=== PATIENT | male | born 1975 | race Caucasian/White ===

== ENCOUNTER 2018-02-27 10:34 | Inpatient (IN) | payer BC, OTHER ==
[~2018-02-27] VITALS: Ht 172.7 cm; Wt 104.3 kg
--- NOTE | 2018-02-27 11:20 | NUR ---
PRE-ADMISSION Pt is a 42 yr old male, AA&Ox4. Pt is presenting himself to [facility] for ETOH use. Pt is noted with increase anxiety m/b difficulty staying still. Pt is noted with facial sweats and fine tremors on BUE. VS 155/103, P 103, T 98.0, O2 97%, pt denies any pain. Pt was seen and examined by Dr. Manning. Pt is to be admitted onto the 3rd unit. Will continue to f/u.
[2018-02-27] MEDS ORDERED: IBUPROFEN 400 MG TABLET PO PRN (11:30)
[2018-02-27] MEDS ORDERED: ONDANSETRON 4 MG/2 ML VIAL IM PRN (11:30)
[2018-02-27] MEDS ORDERED: LOPERAMIDE HCL 2 MG CAPSULE PO PRN ×2 (11:30)
[2018-02-27] MEDS ORDERED: ONDANSETRON ODT 4 MG TAB.RAPDIS SL PRN (11:30)
[2018-02-27] MEDS ORDERED: LORAZEPAM 1 MG TABLET PO PRN ×2 (11:30)
[2018-02-27] MEDS ORDERED: MAG HYDROX/AL HYDROX/SIMETH 30 ML LIQUID UDC PO PRN (11:30)
[2018-02-27] MEDS ORDERED: ACETAMINOPHEN 325 MG TABLET PO PRN (11:30)
[2018-02-27] MEDS ORDERED: MAGNESIUM HYDROXIDE 30 ML LIQUID UDC PO PRN (11:30)
[2018-02-27] MEDS ORDERED: CLONIDINE HCL 0.1 MG TABLET PO PRN (11:30)
[2018-02-27] MEDS ORDERED: LORAZEPAM 2 MG/1 ML VIAL IM PRN (11:30)
[2018-02-27] MEDS ORDERED: DICYCLOMINE HCL 20 MG TABLET PO PRN (11:30)
[2018-02-27] MEDS ORDERED: MIRALAX 17 GM POWD.PACK PO PRN (11:30)
[2018-02-27] MEDS ORDERED: THIAMINE HCL 200 MG/2 ML VIAL IM ONE (11:30)
--- NOTE | 2018-02-27 12:11 | NUR ---
ADMISSION NOTED Pt is a 42 yr old male, AA&Ox4. Pt arrived on the unit at 1206. Pt is presenting himself to [facility] for ETOH withdrawal. Pt is noted with increase anxiety m/b difficultly staying still. Pt is noted with facial sweats and is flushed. Fine tremors are noted on bilateral hands. Pt states of feeling "very anxious" due to coming in to detox. Body check was complete. Skin is intact, warm and moist to touch. Lung sounds are clear bilaterally. Pt states of having PMH of Anxiety, Depression and Insomnia and Sx hx of Nevus removal. Pt denies any Seizure. NO SI/HI. Pt denies any home medication. PCP is Dr. Lilia Mercado. Pt states of having allergies to Codeine. Pt is full Code and follows a Regular diet. SUBSTANCE USE: Pt states drinking became an issue at the age of 32year old. 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 Last use was today on 02/27/18 prior to admission, pt states of consuming 3 shots of vodka. Pt states drinking has negatively affected his life by impairing his relationship with his friends and family and stating it makes him "go into dark places" and states he can become a sexual deviant. Pt states, "I don't ever want to go there again". Pt states he wants to maintain a sober lifestyle and continue with inpatient rehabilitation center. Pt is to start on a 5 day Ativan taper as ordered. Pt was educated on disease process and medication regimen. Pt was able to verbalized understanding. Pt was oriented around unit and equipment in room. Pt is on fall precautions. Will continue to monitor.
[2018-02-27] MEDS: LORAZEPAM 1 MG TABLET PO SCH ×3 (12:50→20:51)
[2018-02-27 13:31] LABS: *AMPHETAMINE, URINE NEGATIVE (NEGATIVE); *BARBITURATE, URINE NEGATIVE (NEGATIVE); *CANNABINOID, URINE NEGATIVE (NEGATIVE); *COCCAINE, URINE NEGATIVE (NEGATIVE); *OPIATE, URINE NEGATIVE (NEGATIVE); *PHENCYCLIDINE SCREEN,URINE NEGATIVE (NEGATIVE)
[2018-02-27 14:09] VITALS: BP 134/84
[2018-02-27 16:00] VITALS: BP 138/86
[2018-02-27 16:05] LABS: BASOPHILS # (AUTO) 0.1 K/uL (0.0-8.0); EOSINOPHILS # (AUTO) 0.1 K/uL (0.0-0.7); EOSINOPHILS % (AUTO) 0.6 % (0.0-7.0); HEMATOCRIT 46.1 % (36.7-47.1); LYMPHOCYTES # (AUTO) 1.7 K/uL (20.0-40.0); LYMPHOCYTES % (AUTO) 19.7 % (20.5-51.5); MEAN CORPUSCULAR HEMOGLOBIN 34.1 uug (23.8-33.4); MEAN CORPUSCULAR HGB CONC 35 g/dL (32.5-36.3); MEAN CORPUSCULAR VOLUME 98.4 fL (73.0-96.2); MONOCYTES # (AUTO) 0.8 K/uL (2.0-10.0); MONOCYTES % (AUTO) 9.3 % (0.0-11.0); NEUTROPHILS % (AUTO) 69.4 % (38.5-71.5); PLATELET COUNT (AUTO) 260 K/uL (152-348); RED BLOOD CELL COUNT(AUTO) 4.69 MIL/uL (4.06-5.63); WHITE BLOOD COUNT (AUTO) 8.6 K/uL (3.6-10.2)
[2018-02-27 16:15] LABS: ALANINE AMINOTRANSFERASE 168 U/L (16-63); ALKALINE PHOSPHATASE 121 U/L (50-136); AMYLASE 34 U/L (25-115); ASPARTATE AMINOTRANSFERASE 85 U/L (15-37); BILIRUBIN,TOTAL 0.8 mg/dL (0.2-1.0); CARBON DIOXIDE 25 mmol/L (21-32); CHLORIDE 100 mmol/L (98-107); GLUCOSE 98 mg/dL (74-106); LIPASE 141 U/L (73-393); MAGNESIUM 1.6 mg/dL (1.8-2.4); UREA NITROGEN, BLOOD 14 mg/dL (7-18)
[2018-02-27 16:20] LABS: ETHANOL < 3 MG/DL (0-0)
[2018-02-27 16:36] LABS: THYROID STIMULATING HORMONE 1.577 mIU/mL (0.358-3.740)
[2018-02-27] MEDS ORDERED: MAGNESIUM OXIDE 400 MG TABLET PO ONE (18:00)
[2018-02-27] MEDS ORDERED: NALT50TA PO (18:56)
--- NOTE | 2018-02-27 19:05 | NUR ---
END OF SHIFT Pt is a 42 yr old male, AA&Ox4. Pt is a newly admit for ETOH withdrawal and started on a 5 day Ativan taper as ordered. Pt is noted with increase anxiety m/b difficulty staying still. Pt is noted with flat affect, facial redness and sweats. Fine tremors were seen on BUE. Pt was encouraged increase fluid intake for hydration. Last CIWA score was 15 at 1600. Safety precautions observed. Endorsed to shift mechanic nurse to continue to with care.
--- NOTE | 2018-02-27 19:39 | NUR ---
START OF SHIFT NOTE Rcvd report from outgoing nurse, pt. is in his room. Pt. is a 42 y/o male A/O to person, place, time, and purpose. Pt. was admitted for medically supervised withdrawal from ETOH. Pt. had his last drink 02/27/18 in the morning before being admitted. Pt. has been presenting w/ extreme anxiety, flat affect, sweats, fine tremors, chills, and flushed face. PRN Mag-Ox 800mg given for Mg++ level of 1.6. PRN Ativan 2mg given for anxiety, noted partially effective. Pt. denies S/I and H/I. Last CIWA 15 @ 1600. Call light is within reach. Pt. will continue to be monitored.
[2018-02-27 20:00] VITALS: BP 142/93
[2018-02-27] MEDS: QUETIAPINE FUMARATE 100 MG TABLET PO PRN (23:07)
[2018-02-27] MEDS: diphenhydrAMINE 50 MG CAPSULE PO PRN (23:07)
--- NOTE | 2018-02-27 23:07 | NUR ---
PRN ADMINISTRATION PRN Benadryl 50mg and Seroquel 100mg given for insomnia resulting from increased anxiety. Will reassess pt in 1 hr.
--- NOTE | 2018-02-28 | NUR ---
CIWA DEFERRED AND V/S REFUSED Pt is in bed w/ his eyes closed. Pt's breathing is unlabored and even.
--- NOTE | 2018-02-28 00:07 | NUR ---
PRN REASSESSMENT Pt reassessed after administration of Benadryl 50mg and Seroquel 100mg. Pt is in bed w/ his eyes closed. Pt's breathing is unlabored and even.
--- NOTE | 2018-02-28 04:00 | NUR ---
CIWA DEFERRED AND V/S REFUSED Pt is in bed w/ his eyes closed. Pt's breathing is unlabored and even.
[2018-02-28 06:06] LABS: HEPATITIS B SURFACE AG Negative (Negative)
--- NOTE | 2018-02-28 07:12 | NUR ---
END OF SHIFT NOTE Endorsed pt to oncoming nurse, pt. is in his room. Pt. is a 42 y/o male A/O to person, place, time, and purpose. Pt. was admitted for medically supervised withdrawal from ETOH. Pt. continues to present w/ extreme anxiety, insomnia, a flat affect, sweats, fine tremors, chills, and flushed face. PRN Benadryl 50mg and Seroquel 100mg given insomnia, noted effective. Pt. denies S/I and H/I. Pts fluid intake was 1000ml and he voided 2 times. Pt slept for 5 hrs. Last CIWA 15 @ 2000. Call light is within reach.
--- NOTE | 2018-02-28 07:30 | NUR ---
Start of shift Pt is 42 y/o male admitted to [facility] for medically supervised withdraw from ETOH. Pt on 5 day Ativan taper (day 2). A&O X4, resp even and unlabored. Presents with anxiety, flat affect and depressed mood. Pt has fine tremors, sweats, flushed face. Denies c/o pain, N/V/D. Last CIWA 15 at 2000. Pt slept 6 hours. Encouraged Pt to attend group therapies to maintain sobriety and prevent relapse. Patient reports CODEINE allergy, FULL CODE. All safety measure in place; Bed lowest/locked position, side rails up X2, call light within reach. Will continue to monitor s/s of withdrawal.
[2018-02-28 08:00] VITALS: BP 123/81
[2018-02-28] MEDS: THIAMINE HCL 100 MG TABLET PO SCH (08:46)
[2018-02-28] MEDS: FOLIC ACID 1 MG TABLET PO SCH (08:46)
[2018-02-28] MEDS: LORAZEPAM 1 MG TABLET PO SCH ×3 (08:46→20:34)
[2018-02-28] MEDS: MULTIVITAMINS,THERAPEUTIC TABLET PO SCH (08:46)
[2018-02-28] MEDS ORDERED: TUBERCULIN,PURIF.PROT.DERIV. 5 TU/0.1 ML TEST ID ONE (09:00)
[2018-02-28 12:00] VITALS: BP 128/89
--- NOTE | 2018-02-28 13:02 | NUR ---
PRN ATIVAN 2 MG PO FOR CIWA 15. PT C/O MODERATE ANXIETY AND AGITATION
--- NOTE | 2018-02-28 14:00 | NUR ---
REASSESS [facility] 12, PT REPORTS ANXIETY AND AGITATION IMPROVED "I FEEL MUCH BETTER"
[2018-02-28 16:00] VITALS: BP 125/84
--- NOTE | 2018-02-28 18:31 | NUR ---
End of shift Pt is 42 y/o male admitted to [facility] for medically supervised withdraw from ETOH. Pt on 5 day Ativan taper (day 2) and tolerating well. Presents with anxiety, flat affect and depressed mood. Pt has fine tremors, sweats, flushed face. Denies c/o pain, N/V/D. Pt remains disheveled and unshaven. PRN given today; Ativan. At 1600 last CIWA 13. Encouraged Pt to attend group therapies to maintain sobriety and prevent relapse. PO fluids 1980 ml, voids x2, NO BM. Patient reports CODEINE allergy, FULL CODE. All safety measure in place; Bed lowest/locked position, side rails up X2, call light within reach. Will continue to monitor s/s of withdrawal. Endorsed to PM shift.
--- NOTE | 2018-02-28 19:30 | NUR ---
Start of Shift Endorsement received from day nurse. Pt admitted 02/27/18 for medically managed withdrawal/detox from ETOH (750ml Vodka x 1.5yrs). Pt present with PMH of anxiety, depression, and insomnia, allergies to Codeine, is a full code, and on a regular diet. Pt on day 2 of a 5 day Ativan taper. Pt presents with sweats/chills, anxiety and agitation. Oriented, affect depressed/worried/sad with poor eye contact. Pt fidgety, easily distracted but redirectable. Denies H/A, A/V hallucinations, admits to photosensitivity. Pt requesting Benedryl and Seroquel for sleep aids. Will continue to monitor closely for duration of shift for any s/s's until morning report.
[2018-02-28 20:00] VITALS: BP 142/92
[2018-02-28] MEDS: diphenhydrAMINE 50 MG CAPSULE PO PRN (20:33)
[2018-02-28] MEDS: QUETIAPINE FUMARATE 100 MG TABLET PO PRN (20:33)
--- NOTE | 2018-02-28 20:33 | NUR ---
PRN Meds Seroquel 100mg PO and Benedryl 50mg PO given for insomnia/sleep aids. Will continue to monitor, reassessing in 1 hour, for any s/s's pain or w/d.
--- NOTE | 2018-02-28 21:33 | NUR ---
PRN Reassessments Seroquel 100mg PO and Benedryl 50mg PO given 1 hour prior as sleep aids for insomnia. At present, pt is sleeping. RR 14, even and nonlabored. Meds effective.Will continue to monitor for any s/s's pain or w/d for duration of shift until morning endorsement.
[2018-03-01] VITALS: BP 141/81
--- NOTE | 2018-03-01 | NUR ---
Midnight CIWA Deferred 0000 VS's obtained/stabe, CIWA deferred r/t pt sleeping/refused. RR 14 even and nonlabored. Pt requesting not to be awakened for 0400 VS's or CIWA. Will continue to monitor for any s/s's pain or w/d.
--- NOTE | 2018-03-01 04:00 | NUR ---
VS's, CIWA Deferred VS's and CIWA both deferred per pt refusal. RR 14, even and nonlabored. Will continue to monitor pt for any s/s's pain or w/d until giving morning endorsement
--- NOTE | 2018-03-01 07:04 | NUR ---
End of Shift Endorsement given to day nurse. Pt admitted 02/27/18 for medically managed withdrawal/detox from ETOH (750ml Vodka x 1.5yrs). Pt present with PPH of anxiety, depression, and insomnia, allergies to Codeine, is a full code, and on a regular diet. Pt on day 3 of a 5 day Ativan taper. Pt continues to present with anxiety/agitation, diaphoresis but tolerating Ativan taper well, requiring Benedryl and Seroquel as only PRN's for shift. Pt slept fo 9 hours, with 1000mls intake and 2 voids. Pt continues to be cooperative, with poor eye contact appearing depressed/sad with feelings of low self esteem and anxious. Pt isolative for shift, remaining in room except to shower. Pt remains unshaven. Safety measure remain in place with fall and seizure precautions, bed locked and in lowest position, siderails x 2 up, call light withing reach and all needs attended to
--- NOTE | 2018-03-01 07:45 | NUR ---
START OF SHIFT NOTE Received report from night nurse, patient admitted for ETOH withdrawal. Patient continues with Ativan taper tolerating well. Per endorsement patient received PRN Seroquel and Benadryl effective per night nurse. last CIWA- score was 14, slept for 9 hours. Received patient alert awake, labile facial expression, anxiety, agitation, restless, bilateral hand tremors noted. Educated patient current plan of the day and medication regimen and importance of attending group activities. Patient verbalized understanding. All safety measures in place, call light within reach. Will cont to monitor.
[2018-03-01 08:00] VITALS: BP 101/68
[2018-03-01] MEDS: FOLIC ACID 1 MG TABLET PO SCH (09:01)
[2018-03-01] MEDS: THIAMINE HCL 100 MG TABLET PO SCH (09:01)
[2018-03-01] MEDS: MULTIVITAMINS,THERAPEUTIC TABLET PO SCH (09:01)
[2018-03-01] MEDS: LORAZEPAM 1 MG TABLET PO SCH ×2 (09:02→12:27)
[2018-03-01 12:00] VITALS: BP 135/85
[2018-03-01 16:00] VITALS: BP 114/74
[2018-03-01] MEDS ORDERED: LORAZEPAM 1 MG TABLET PO SCH ×2 (17:00→21:00)
--- NOTE | 2018-03-01 19:08 | NUR ---
END OF SHIFT NOTE Gave report to night nurse, 42 year old male patient started on a 5 day Ativan taper and is tolerating well. Pt remains A/O x4. No acute distress noted throughout shift. S/S of acute withdrawal are managed by ordered medications. Patient remains safe throughout shift. No PRN medications needed or administered throughout shift. Most recent CIWA is 12 @ 1600. All needs are attended. Pt endorsed to night nurse in stable condition. Pt is stable at this time, night nurse will continue to monitor.
--- NOTE | 2018-03-01 19:30 | NUR ---
Start of Shift Endorsement received from day shift. Pt admitted 02/27/18 for medically managed withdrawal/detox from ETOH (750mls/day). Pt is a full code with allergies to Codeine, and a regular diet. PMH of Anxiety, Depression and Insomnia. Tolerating Ativan taper well, day 3 of 5, last reported CIWA 13 at 1600 hours, evidenced with tremors, sweats, anxiety and agitation. Pt isolative, encouraged to leave room and socialize-says he will be going outside following day to read. Pt oriented and cooperative, denies H/A's, B/A's. N/V/D. Sleep aids requested with evening meds. Safety measure in place: bed locked and in lowest position with siderails x 2 up. Pt due for scheduled medications. Will continue to monitor for any s/s's pain or w/d
[2018-03-01 20:00] VITALS: BP 130/83
[2018-03-01] MEDS: diphenhydrAMINE 50 MG CAPSULE PO PRN (20:17)
--- NOTE | 2018-03-01 20:17 | NUR ---
PRN Meds Benedryl 50mg PO and Seroquel 100mg PO for insomnia requested for insomnia. Will continue to monitor, reassessing in 1 hour
[2018-03-01] MEDS: GABAPENTIN 300 MG CAPSULE PO SCH (20:18)
[2018-03-01] MEDS: QUETIAPINE FUMARATE 100 MG TABLET PO PRN (20:18)
--- NOTE | 2018-03-01 21:17 | NUR ---
PRN Reassessment Benedryl 50mg PO and Seroquel 100mg PO given 1 hour prior for insomnia, Currently, pt is sleeping, RR 16, even and nonlabore. Meds effective.Will continue to monitor, reassessing for any s/s's pain or w/d.
[2018-03-02] VITALS: BP 116/88
--- NOTE | 2018-03-02 | NUR ---
CIWA Deferred VS's obtained/stable. CIWA deferred r/t pt sleeping/refused. Will continue to monitor for any s/s's pain or w/d or distress
[2018-03-02 04:00] VITALS: BP 122/92
--- NOTE | 2018-03-02 04:00 | NUR ---
CIWA Deferred VS's obtained, stable. BP 122/92, HR 83, RR 20, SaO2 98%. CIWA deferred r/t pt sleeping/refused. Will continue to monitor, assessing for any s/s's pain or w/d.
--- NOTE | 2018-03-02 07:17 | NUR ---
End of Shift Endorsement given to day nurse. Pt admitted 02/27/18 for ETOH, continues to tolerate 5 day Ativan taper well. Pt's last CIWA 13 at 2000 hours, scoring highest in areas of tremors and anxiety. Pt remains isolative, plans to "read outside" today encouraged to expand. Pt remains anxious, worried, depressed, with chills and clammy skin at times. Diaphoresis persists. VS's stable for night post 2100 meds with Benedryl and Seroquel being only PRN's this shift. Pt slept for 8 hours, with 796mls intake and 1 void. Pt remains a full code with allergies to Codeine, and on a regular diet. Safety precautions remain in place, fall and seizure, with bed in lowest position and locked, siderails up x 2, all needs attended and in no apparent distress.
--- NOTE | 2018-03-02 07:57 | NUR ---
START OF SHIFT NOTE Received report from night nurse, patient admitted for ETOH withdrawal. Patient continues with Ativan taper tolerating well. Per endorsement patient received PRN Seroquel and Benadryl effective per night nurse. last CIWA- score was 13, slept for 8 hours. Received patient asleep responsive to verbal and tactile stimuli. Breathing normal no SOB noted. Skin intact warm and dry to touch. Patient verbalized understanding. All safety measures in place, call light within reach. Will cont to monitor.
[2018-03-02 08:00] VITALS: BP 129/80
[2018-03-02] MEDS: GABAPENTIN 300 MG CAPSULE PO SCH ×2 (08:17→20:23)
[2018-03-02] MEDS: MULTIVITAMINS,THERAPEUTIC TABLET PO SCH (08:17)
[2018-03-02] MEDS: LORAZEPAM 1 MG TABLET PO SCH ×3 (08:17→20:23)
[2018-03-02] MEDS: FOLIC ACID 1 MG TABLET PO SCH (08:17)
[2018-03-02] MEDS: THIAMINE HCL 100 MG TABLET PO SCH (08:17)
[2018-03-02 12:00] VITALS: BP 138/92
[2018-03-02 16:00] VITALS: BP 123/79
--- NOTE | 2018-03-02 19:04 | NUR ---
END OF SHIFT NOTE Gave report to night nurse, 42 year old male patient started on a 5 day Ativan taper and is tolerating well. Patient presented with anxiety, agitation, restless, diaphoresis scheduled medications were given effective per patient. No acute distress noted throughout shift. Patient remains safe throughout shift. No PRN medications needed or administered throughout shift. Most recent CIWA is 11 @ 1600. All needs are attended. Pt endorsed to night nurse in stable condition. Pt is stable at this time, night nurse will continue to monitor.
--- NOTE | 2018-03-02 19:04 | NUR ---
START OF SHIFT NOTE: Endorsed patient is a 42 year old male admitted on 02/27/2018 for Alcohol (Vodka) withdrawal, placed on 5 day Ativan taper, which tolerated well. Withdrawal symptoms closely monitored. Patient is alert and oriented x4, ambulatory with steady gait. His speech is soft and clear. The patient reports allergy to Codeine, Regular Diet, is on Fall and Seizures Precautions. Patient denies history of seizures. The patient appears with anxious mood and labile affect. Reassuring provided. Encouraged to express her feelings. Patient noted disheveled, unkempt, with uncombed hair. Educated in safety and hygiene care. Encouraged to independently perform hygiene care. The most recent CIWA=11 at 1600, per outgoing day shift nurse report: The patient presented with moderate withdrawal symptoms of anxiety, agitation, nervousness, irritability, sweating, abdominal cramps, nausea, restlessness, tremors, and fatigue. Respirations are even and unlabored. Patient denies SOB, chest pain, and cough. Skin is intact, warm, and dry to touch. The patient tolerated well. The patient remains compliant with treatment, medications, and diet regime. No PRN Medications administrated during day shift. Encouraged to fluids intake as tolerated. Safe and calm environment with minimized noises was provided. All needs met. Safety measures in place: Call light within reach, bed is locked in lowest position, and padded bed rails up bilaterally. Patient endorsed by outgoing day shift nurse. Will continue to monitor closely.
[2018-03-02 20:00] VITALS: BP 131/88
[2018-03-02] MEDS: diphenhydrAMINE 50 MG CAPSULE PO PRN (20:23)
[2018-03-02] MEDS: QUETIAPINE FUMARATE 100 MG TABLET PO PRN (20:26)
--- NOTE | 2018-03-02 20:26 | NUR ---
PRN SEROQUEL 100 MG PO AND PRN BENADRYL 50 MG PO ADMINISTRATION PRN Benadryl 50 mg PO given at 2022 and PRN Seroquel 100 mg PO administrated for insomnia at 2025, as ordered. Patient tolerated well. Safe and calm environment with minimized noises was provided. All needs met. Safety measures: Call light within reach, bed locked in lowest position, and padded bed rails up bilaterally. Will continue to monitor closely.
--- NOTE | 2018-03-02 21:26 | NUR ---
PRN SEROQUEL PO AND PRN BENADRYL PO RE-ASSESSMENT Patient is sleeping. RR 17. Respirations even and unlabored. PRN Seroquel 50 mg PO and PRN Benadryl 50 mg PO administrated for insomnia, were effective. Safe and calm environment with minimized noises was provided. All needs met. Safety measures: Call light within reach, bed locked in lowest position, and padded rails up bilaterally. Will continue to monitor closely. Addendum: 03/03/18 at 0131 by TIMMY HUBBARD RN PRN Seroquel 100 mg PO and PRN Benadryl 50 mg PO administrated for insomnia, were effective.
[2018-03-03] VITALS: BP 122/87
[2018-03-03 04:00] VITALS: BP 130/87
--- NOTE | 2018-03-03 07:06 | NUR ---
END OF SHIFT NOTE Endorsed 42 year old male admitted to [facility] for ETOH (Vodka) withdrawal, tolerated well with ordered 5 day Ativan taper. Patient reports Allergy to Codeine, is on Regular Diet, Full Code, is on Fall and Seizures Precautions. The patient denies history of withdrawal-induced seizures. The patient is alert and oriented x4 with steady gait, and clear soft speech. The patient appears worried with anxious mood. Emotional support provided. Encouraged to expresses his feelings. Relaxation Techniques: Deep breathing exercises, guided imagery, and visualization. Patient noted to be disheveled, unshaven, unkempt and uncombed. Encouraged to independently perform hygiene care. Initial CIWA=12 at 2000, CIWA=9 at 0000. Last CIWA=10 at 0400: Patient presented with anxiety, agitation, depression, irritability, fatigue, nervousness, very mild pins and needles sensations, and sweating. PRN Seroquel 100 mg PO administrated for depression at 2025, and PRN Benadryl 50 mg PO administrated for insomnia at 2022, and were effective. Patient remains compliant with treatment, medications, and diet regime. Safe and calm environment with minimized noises was provided. Patient slept 6 hours, intake 1,000 ml, voided x1. All needs met. Safety measures in the place by hospital policy: Call light within reach, bed in the lowest position and locked, padded rails up x2. Patient endorsed to day shift nurse.
[2018-03-03 08:00] VITALS: BP 138/89
--- NOTE | 2018-03-03 08:00 | NUR ---
START OF SHIFT NOTE Received report from night nurse, patient admitted for ETOH withdrawal. Patient continues with Ativan taper tolerating well. Per endorsement patient received PRN Seroquel and Benadryl effective per night nurse. last CIWA- score was 10, slept for 6 hours. Received patient awake alert, anxious, labile facial expression, unkept, empty bottles all over the room.Skin intact warm and dry to touch. Educated pt about importance of attending groups activities. Patient verbalized understanding. All safety measures in place, call light within reach. Will cont to monitor.
[2018-03-03] MEDS: GABAPENTIN 300 MG CAPSULE PO SCH ×3 (08:12→20:47)
[2018-03-03] MEDS: LORAZEPAM 1 MG TABLET PO SCH ×2 (08:12→20:46)
[2018-03-03] MEDS: MULTIVITAMINS,THERAPEUTIC TABLET PO SCH (08:12)
[2018-03-03] MEDS: FOLIC ACID 1 MG TABLET PO SCH (08:12)
[2018-03-03] MEDS: THIAMINE HCL 100 MG TABLET PO SCH (08:12)
[2018-03-03 12:00] VITALS: BP 134/79
[2018-03-03] MEDS ORDERED: HYDROXYZINE PAMOATE 25 MG CAPSULE PO PRN (12:15)
[2018-03-03] MEDS ORDERED: GABA-534 PO (15:06)
[2018-03-03] MEDS ORDERED: HYDR-3895 PO (15:06)
[2018-03-03] MEDS ORDERED: CLON0.1T14 PO (15:06)
[2018-03-03] MEDS ORDERED: IBUP-1953 PO (15:06)
[2018-03-03] MEDS ORDERED: DIPH50CA37 PO (15:06)
[2018-03-03] MEDS ORDERED: DICY20TA28 PO (15:06)
[2018-03-03 16:00] VITALS: BP 123/86
--- NOTE | 2018-03-03 18:56 | NUR ---
END OF SHIFT NOTE Gave report to night nurse, 42 year old male patient cont with 5 day Ativan taper and is tolerating well. Patient presented with anxiety, agitation, restless, diaphoresis and bilateral hand tremors noted scheduled medications were given effective per patient. No acute distress noted throughout shift. Patient remains safe throughout shift. No PRN medications needed or administered throughout shift. Most recent CIWA is 11 @ 1600. All needs are attended. Pt endorsed to night nurse in stable condition. Pt is stable at this time, night nurse will continue to monitor.
--- NOTE | 2018-03-03 19:30 | NUR ---
START OF SHIFT Pt is a 42 y/o male admitted on 02/27/18 for ETOH withdrawal. Pt is on a 5 day Ativan taper that started on 02/27/18, tolerating well. Last CIWA 11 and no PRNs administered during day shift. Upon assessment pt presents with anxiety, sweats, chills, agitation, restlessness, difficulty falling and staying asleep, flat affect, elevated HR, unkempt room, and disheveled appearance. Medications due. Safety measures in place. Call light within reach. Will continue to monitor.
[2018-03-03 20:00] VITALS: BP 136/89
[2018-03-03] MEDS: diphenhydrAMINE 50 MG CAPSULE PO PRN (20:47)
[2018-03-03] MEDS: QUETIAPINE FUMARATE 100 MG TABLET PO PRN (20:47)
--- NOTE | 2018-03-03 20:47 | NUR ---
CARLITOS SEROQUEL AND BENADRYL ADMINISTRATION Pt reports that he took Seroquel and Benadryl last night for sleep and was effective, requests the same for sleep aid. Pt states, "I have the worst insomnia." Safety measures in place. Call light within reach. Will continue to monitor.
--- NOTE | 2018-03-03 21:47 | NUR ---
PRN SEROQUEL AND BENADRYL REASSESSMENT Pt laying in bed with eyes closed, medications noted effective. Safety measures in place. Call light within reach. Will continue to monitor.
--- NOTE | 2018-03-04 | NUR ---
COWS/CIWA DEFERRED AND VITALS REFUSED Pt laying in bed with eyes closed, COWS/CIWA deferred, to be assessed when pt is awake per orders. Vitals refused. Respirations even and unlabored. Safety measures in place. Call light within reach. Will continue to monitor. Addendum: 03/04/18 at 0158 by OSMANY CORTES RN CIWA ONLY DEFERRED, NO COWS.
--- NOTE | 2018-03-04 04:00 | NUR ---
CIWA DEFERRED AND VITALS REFUSED Pt laying in bed with eyes closed, CIWA deferred, to be assessed when pt is awake per orders. Vitals refused. Respirations even and unlabored. Safety measures in place. Call light within reach. Will continue to monitor.
--- NOTE | 2018-03-04 07:00 | NUR ---
END OF SHIFT Pt is a 42 y/o male admitted on 02/27/18 for ETOH withdrawal. Pt is on a 5 day Ativan taper that started on 02/27/18, tolerating well. Pt presented with anxiety, sweats, chills, agitation, restlessness, difficulty falling and staying asleep, flat affect, elevated HR, unkempt room, and disheveled appearance. Scheduled medications and PRN Seroquel and Benadryl administered, effective in S/S of withdrawal as verbalized by pt. Last CIWA 11. Pt slept 9 hours. Intake 1500 ml, void x 3, stool x 2. Safety measures in place. Call light within reach. Pts needs have been met. Endorsed to day shift nurse.
[2018-03-04 08:00] VITALS: BP 117/83
--- NOTE | 2018-03-04 08:06 | NUR ---
START OF SHIFT PT IS A 42 Y/O M ADMITTED ON 02/27/18 FOR ETOH WITHDRAWAL. PT CONTINUES ON ATIVAN TAPER -STARTED ON 02/27/18 AND TODAY IS THE LAST DAY; PT IS TOLERATING WELL. RECEIVED PT LAYING IN BED, APPEARS DROWSY BUT A/OX4, RESPIRATIONS EVEN AND UNLABORED. PT HAS A DISHEVELED APPEARANCE AND ANXIOUS MOOD. PT REPORTS HAVING RESTLESSNESS, DIFFICULTY FALLING AND STAYING ASLEEP, AND ANXIETY. LAST CIWA 11 AND SEROQUEL AND BENADRYL PRN WAS GIVEN DURING ADMITTING OFFICE ESCORT. PT SLEPT 9 HRS. EDUCATED PT WITH S/S TO REPORT, MED REGIMEN, AND TODAY'S PLAN OF CARE. SIDE RAILS UPX2, BED IN LOW POSITION, CALL LIGHT IS WITHIN REACH. SAFETY MEASURES IN PLACE. WILL CONTINUE TO MONITOR.
[2018-03-04] MEDS ORDERED: LORAZEPAM 1 MG TABLET PO SCH (09:00)
[2018-03-04] MEDS: FOLIC ACID 1 MG TABLET PO SCH (09:29)
[2018-03-04] MEDS: MULTIVITAMINS,THERAPEUTIC TABLET PO SCH (09:29)
[2018-03-04] MEDS: THIAMINE HCL 100 MG TABLET PO SCH (09:29)
[2018-03-04] MEDS: GABAPENTIN 300 MG CAPSULE PO SCH ×3 (09:30→20:35)
[2018-03-04 12:15] VITALS: BP 129/85
[2018-03-04 16:00] VITALS: BP 118/84
--- NOTE | 2018-03-04 18:47 | NUR ---
END OF SHIFT PT IS IN HIS ROOM LAYING IN BED WITH EYES CLOSED. RESPIRATIONS EVEN AND UNLABORED. PT HAS BEEN COMPLIANT WITH MED REGIMEN AND TX PLAN AND PT HAVE ATTENDED AND PARTICIPATED IN GROUPS AND ACTIVITIES. LAST CIWA 8 @1600. NO PRNS GIVEN DURING SHIFT. PT REPORTS THAT HE HAS BEEN HAVING TROUBLE FALLING AND STAYING ASLEEP. REASSURED PT WILL BE GIVEN MEDS TO AID IN SLEEP. VS WNL. PT HAS COMPLETED THE 5 DAY ATIVAN TAPER AND TOLERATED WELL. PT WILL BE MEDICALLY CLEARED TO BE DISCHARGED TOMORROW. FLUID INTAKE 1500 MG, VOIDED X3, BM X1. ATE 100% OF MEALS. SAFETY MEASURES IN PLACE. WILL GIVE ENDORSEMENT TO PHOTOGRAPHER'S MODEL NURSE.
--- NOTE | 2018-03-04 18:47 | NUR ---
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 The patient remains compliant with treatment, medications and diet regime. The patient is alert and oriented x4. Patient reports allergy to Codeine. He is on Full Code, Regular Diet, Fall and Seizures Precautions. The patient denies history of seizures r/t withdrawal. PMH: Anxiety, Depression, Insomnia. Patient denies SI/HI. Patient is lying in the bed, and watching TV. The patient appears anxious, agitated, worried, sad, with poor eye contact, and c/o easily overwhelmed. Patient noted disheveled, unkempt, and with hair uncombed. Educated in safety and hygiene care. Encouraged to independently perform hygiene care. The patient verbalized understanding. Latest CIWA=9 at 1618. Patient presents with anxiety, agitation, nervousness, pins and needles sensations, sweating, tremors, fatigue, and restlessness. VSWNL. No PRN Medications administrated during day shift. The patient scheduled for discharging tomorrow at 0930. Safe and calm environment with minimized noises was provided. Encouraged to fluid intake as tolerated. Encouraged to attended groups activities. All needs met. Safety measures: Call light within reach, bed in the lowest position locked, and padded rails up x2. The patient endorsed by day shift nurse. Will continue to monitor closely.
[2018-03-04 20:00] VITALS: BP 126/78
[2018-03-04] MEDS: QUETIAPINE FUMARATE 100 MG TABLET PO PRN (20:35)
[2018-03-04] MEDS: diphenhydrAMINE 50 MG CAPSULE PO PRN (20:35)
--- NOTE | 2018-03-04 20:35 | NUR ---
PRN SEROQUEL 100 MG PO AND PRN BENADRYL 50 MG PO ADMINISTRATION PRN Seroquel 100 mg PO and PRN Benadryl 50 mg PO administrated for insomnia, as ordered. Patient tolerated well. Safe and calm environment with minimized noises was provided. All needs met. Safety measures: Call light within reach, bed locked in lowest position, and padded bed rails up bilaterally. Will continue to monitor closely.
--- NOTE | 2018-03-04 21:35 | NUR ---
PRN SEROQUEL PO AND PRN BENADRYL PO RE-ASSESSMENT Patient is sleeping. Respirations even and unlabored. RR 15. PRN Seroquel 100 mg PO and PRN Benadryl 50 mg PO administrated for insomnia at 2034, were effective. Safe and calm environment with minimized noises was provided. All needs met. Safety measures: Call light within reach, bed locked in lowest position, and padded rails up bilaterally. Will continue to monitor closely.
--- NOTE | 2018-03-05 | NUR ---
VS REFUSED, CIWA DEFERRED VS refused, CIWA deferred at 0000 due to patient sleeping; to be assessed and scored while patient is awake. Respirations are even and unlabored. RR:16. Safe and calm environment with minimized noises was provided. All needs met. Safety measures: Call light within reach bed is locked in lowest position, and padded bed rails up bilaterally.
--- NOTE | 2018-03-05 04:00 | NUR ---
VS REFUSED, CIWA DEFERRED VS refused, CIWA deferred at 0400 due to patient sleeping; to be assessed and scored while patient is awake. Respirations are even and unlabored. RR: 15. Safe and calm environment provided. All needs met. Safety measures in place: Call light within reach, bed locked in lowest position, and padded bed rails up bilaterally. Will continue to monitor closely.
--- NOTE | 2018-03-05 07:09 | NUR ---
END OF SHIFT NOTE The patient is a 42 year old male completed ordered 5 day Ativan taper for ETOH (Vodka) withdrawal, which tolerated well. No S/S of ASE noted. Patient reports Allergy to Codeine, is on Regular Diet, Full Code, is on Fall and Seizures Precautions. The patient denies history of withdrawal-induced seizures. The patient denies SI/HI. The patient is alert and oriented x4 with steady gait, and clear soft speech. Patient appears with anxious mood and flat affect. Emotional support and reassuring provided. Encouraged to expresses his feelings. Relaxation Techniques: deep breathing exercises, guided imagery, and visualization. Initial CIWA=11 at 1999: Patient presented with anxiety, agitation, depression, irritability, fatigue, nervousness, tremors, and sweating. Patient refused to be woken up for 0000 and 0400 for VS. CIWA deferred d/t patient sleeping to assess while patient is awake. PRN Seroquel 100 mg PO and PRN Benadryl 50 mg PO administrated for insomnia at 2034, and were effective. Patient remains compliant with treatment, medications, and diet regime. Safe and calm environment with minimized noises was provided. Patient slept 8 hours, intake 2,000 ml, voided x1. All needs met. Safety measures in the place by hospital policy: Call light within reach, bed in the lowest position and locked, padded rails up x2. Patient endorsed to day shift nurse.
--- NOTE | 2018-03-05 07:16 | NUR ---
BEGINNING OF SHIFT Patient endorsement report received from shift supervisor melting nurse, all pertinent information. Patient is a 42 year old male admitted on 02/27/2018, with admitting Dx: etoh withdrawal. Patient completed 5 day Ativan taper, and is scheduled to be discharged this morning. Per shift supervisor melting patient with last ciwa score of: 11, patient received PRN: Benadryl, as per shift supervisor melting medication effective. Patient slept for 8 hours. patient skin is intact. Patient in bed sound asleep, respirations are even and unlabored, 16. Responsive to verbal stimuli. Will educate patient regarding plan of care for the day, medication regimen and discharge instructions. Safety measures are in place. call light kept with in reach. will continue to monitor closely.
[2018-03-05 08:05] VITALS: BP 126/87
[2018-03-05] MEDS: FOLIC ACID 1 MG TABLET PO SCH (08:25)
[2018-03-05] MEDS: THIAMINE HCL 100 MG TABLET PO SCH (08:25)
[2018-03-05] MEDS: MULTIVITAMINS,THERAPEUTIC TABLET PO SCH (08:25)
[2018-03-05] MEDS: GABAPENTIN 300 MG CAPSULE PO SCH (08:25)
--- NOTE | 2018-03-05 09:32 | NUR ---
DISCHARGE Patient discharged off the unit at 0941, in stable condition, prior to discharge patient was provided with education and teaching regarding all discharge instructions with good verbal understanding. Patient noted self motivated towards sobriety. Patient with last ciwa score of: 5, vital signs WNL. Patients home medications, prescriptions and discharge instructions were placed in patient duffel bag. Patient requested not to take home medication "naltrexone 1 bottle" Medication was destroyed by primary nurse and charge nurse. Patient off the unit in stable condition at 0941. Addendum: 03/05/18 at 1003 by CATHIE CARLSON LVN incorrect note time, correct time was 0941.
== END 2018-03-05 09:41 | disposition other institution (70) | DRG 895 ==
LOC: SRC 11:08
PROVIDERS: ADMIT Internal Medicine; ATTEND Internal Medicine
PROC: HZ2ZZZZ Detoxification Services for Substance Abuse Treatment (ICD-10-PCS; principal; 2018-02-27)
PROC: HZ51ZZZ Individual Psychotherapy for Substance Abuse Treatment, Behavioral (ICD-10-PCS; 2018-02-28)
DX: F10.230 Alcohol dependence with withdrawal, uncomplicated (principal); K70.10 Alcoholic hepatitis without ascites; Y90.0 Blood alcohol level of less than 20 mg/100 ml; I15.9 Secondary hypertension, unspecified; G47.00 Insomnia, unspecified; F41.9 Anxiety disorder, unspecified; Z83.3 Family history of diabetes mellitus; Z80.0 Family history of malignant neoplasm of digestive organs; Z81.1 Family history of alcohol abuse and dependence; E83.42 Hypomagnesemia; F32.9 Major depressive disorder, single episode, unspecified; Z91.89 Other specified personal risk factors, not elsewhere classified
CPT/HCPCS: 36415; 80307; 83690; 83735; 84443; 85025; 86592; 86705; 86803; 87340; 87806; A4663; G0480; J3411; Q0163